=== PATIENT | male | born 1955 | race Caucasian/White ===

== ENCOUNTER → 2016-12-09 | Day surgery (SDC) | payer OTHER ==
[~2016-12-09] MED LIST: ACETAMINOPHEN/HYDROcodone 325 MG/5 MG TAB ONE; BUPIVACAINE/EPINEPHRINE 0.25% PF 30 ML VIAL ONE; KETOROLAC TROMETHAMINE 30 MG/ML (IVP) VIAL IV PUSH ONE; LACTATED RINGER'S 1000 ML INJ 1,000 ML ONE; MIDAZOLAM HCL 2 MG/2 ML VIAL ONE; ONDANSETRON HCL 4 MG/2 ML VIAL IV PUSH ONE; PROPOFOL 200 MG/20 ML AMP IV ONE; ceFAZolin 2 GM PREMIX 50 ML ONE; ceFAZolin INJ 1,000 MG VIAL ONE
--- NOTE | 2016-12-09 10:43 | TN ---
cc: JOHNNY BRANDT M.D. DATE OF SURGERY: December 09, 2016 PREOPERATIVE DIAGNOSIS Symptomatic right inguinal hernia. POSTOPERATIVE DIAGNOSIS 1. Symptomatic right inguinal hernia. 2. Indirect right inguinal hernia with large cord lipoma. PROCEDURE PERFORMED Laparoscopic right inguinal hernia repair with mesh. SURGEON Johnny Brandt MD ANESTHESIA General LMA. COMPLICATIONS None. INDICATION FOR PROCEDURE Mr. Poe is a pleasant 61-year-old gentleman who has symptomatic right inguinal hernia. He was seen and evaluated in the office. He was found to have a right-sided hernia. He had no evidence of left inguinal hernia. Risks and benefits of open laparoscopic repair were discussed with him and he requested laparoscopic. DETAILS OF PROCEDURE The patient was identified, brought to the operating room and placed supine on the operating table. After adequate general anesthesia was achieved with LMA, the anterior abdomen was prepped and draped in standard surgical fashion. Infraumbilical space was anesthetized with 0.25% Marcaine. Infraumbilical incision was made. Dissection was carried down subcutaneous tissue to the anterior rectus fascia. Anterior rectus fascia was then incised vertically off the midline to the right side. Rectus muscle was identified and retracted laterally. Preperitoneal space was entered with blunt finger dissection. Blunt dissecting balloon was inserted and insufflated with 30 pumps of air under direct vision using 0 degree laparoscope. Next, the balloon dissector was removed and balloon trocar inserted. Preperitoneal space was insufflated to 12 mmHg using CO2 gas. Next, two 5 mm trocars were placed in the lower midline under direct vision. Attention was directed first to the midline where the pubic tubercle and Eduardo's ligament were identified. Dissection then proceeded out laterally identifying the cord structures exiting the internal ring. Traveling with the cord structures there was a large amount of fat in the peritoneal hernia sac. These were carefully dissected out of the inguinal canal using hand over hand technique. They were then stripped back several centimeters away from the internal ring. There was no evidence of a direct inguinal hernia. Next, a posterior window was made behind the cord structures. A piece of polypropylene mesh was inserted with a slit cut for the cord structures. The mesh was placed through the posterior window and then the slit was reapproximated using pro-tacking device appropriately tightening the internal ring around the cord structures. Mesh was then secured medially at Eduardo's ligament and pubic tubercle and superior along the posterior abdominal wall fascia. An onlay mesh was then placed over the slit in order to buttress it. This was secured medially and laterally. With this the indirect and direct spaces were well covered by mesh with generous overlap. 0.25% Marcaine was injected in operative field. Inferior border of the mesh was then held down and the preperitoneal space was desufflated and the peritoneum was seen to roll up over the mesh, again with excellent coverage of the indirect and direct spaces. All trocars were removed under direct vision. Anterior rectus fascia was repaired with 0 Vicryl in a [id number] fashion. Skin was closed with 4-0 Vicryl. The patient tolerated the procedure well, was awakened and brought to recovery in stable condition. Johnny MD JACK Brandt/MARGARET /10:18 AM /10:30 AM
== END | disposition home or self-care (01) ==
LOC: ESDC 07:26
PROVIDERS: ATTEND Surgery Trauma Surgery
DX: K40.90 Unilateral inguinal hernia, without obstruction or gangrene, not specified as recurrent (principal); D17.6 Benign lipomatous neoplasm of spermatic cord
CPT/HCPCS: C1727; C1781; J0690; J1885; J2250; J2405; J3010; J7120

== ENCOUNTER → 2017-02-02 | Outpatient (CLI) | payer OTHER ==
[~2017-02-02] VITALS: Ht 175.3 cm; Wt 88.5 kg
[~2017-02-02] MED LIST changes: -ACETAMINOPHEN/HYDROcodone 325 MG/5 MG TAB ONE; -BUPIVACAINE/EPINEPHRINE 0.25% PF 30 ML VIAL ONE; +DEXTROSE 5% IN WATE 1000ML INJ 1,000 ML IV SCH; +INSULIN HUMAN REGULAR 1,000 UNITS/10 ML VIAL SQ PRN; -KETOROLAC TROMETHAMINE 30 MG/ML (IVP) VIAL IV PUSH ONE; -LACTATED RINGER'S 1000 ML INJ 1,000 ML ONE; +LACTATED RINGER'S 1000 ML IV SCH; +METOPROLOL TARTRATE 25 MG TAB PO PRN; -MIDAZOLAM HCL 2 MG/2 ML VIAL ONE; -ONDANSETRON HCL 4 MG/2 ML VIAL IV PUSH ONE; +SODIUM CHLORID 0.9% 500 ML IV SCH; -ceFAZolin 2 GM PREMIX 50 ML ONE; -ceFAZolin INJ 1,000 MG VIAL ONE
[2017-02-02 06:51] VITALS: BP 107/73; PULSE 70; RESP 16; TEMP 97.5; O2SAT 98
[2017-02-02 08:00] VITALS: TEMP 97.8
--- NOTE | 2017-02-02 08:02 | GIPROC ---
[facility] [address] [facility]. [facility], [address] COLONOSCOPY PROCEDURE REPORT EXAM DATE: 02/02/2017 PATIENT NAME: Jigar Poe MR #: [id number] BIRTHDATE: 1955 ENDOSCOPIST: Yarely Abdullahi MD ORDER #: [id number] ORIENTAL RUG STRETCHER: Ulysses Diaz and Melecio Griffith STATUS: outpatient INDICATIONS: The patient is a 61 yr old male here for a colonoscopy due to Screening PROCEDURE PERFORMED: Total Colonoscopy with polypectomy with biopsy forceps MEDICATIONS: See Anesthesia Record ESTIMATED BLOOD LOSS: None CONSENT: The patient understands the risks and benefits of the procedure and understands that these risks include, but are not limited to: sedation, allergic reaction, infection, perforation and/or bleeding. Alternative means of evaluation and treatment include, among others: physical exam, x-rays, and/or surgical intervention. The patient elects to proceed with this endoscopic procedure. DESCRIPTION OF PROCEDURE: checked for proper function. Hand hygiene and appropriate measures for infection prevention was taken. After the risks, benefits and alternatives of the procedure were thoroughly explained, Informed consent was verified, confirmed and timeout was successfully executed by the treatment team. A digital exam was performed. The endoscope was introduced through the anus and advanced to the cecum, which was identified by the appendiceal orifice, tri-radiate valve, and ileocecal valve. The prep quality was The instrument was then slowly withdrawn as the colon was fully examined. There were no mucosal abnormalities noted with the cecum, ascending colon, transverse colon, descending colon, or sigmoid colon. At the rectosigmoid junction a 2-3 mm polyp was noted and removed with the biopsy forceps. The scope was then completely withdrawn from the patient and the procedure terminated. ADVERSE EVENTS: There were no complications. WITHDRAWL TIME: DEGREE OF DIFFICULTY: IMPRESSIONS: Normal Colon RECOMMENDATIONS: If polyp adenomatous, repeat in 5 years, if hyperplastic repeat in 10 years PATIENT CONDITION: Stable DISPOSITION: Home RECALL: Await biopsy Yarely Abdullahi MD eSigned: Yarely Abdullahi MD 02/02/2017 8:02 AM cc: PATIENT NAME: Jigar Poe MR#: [id number]
[2017-02-02 08:25] VITALS: BP 115/73; PULSE 70; RESP 16; O2SAT 98
--- NOTE | 2017-02-02 09:14 | EKG ---
Date Performed: 02/02/2017 Time Performed: 07:11:54 PTAGE: 61 years EKG: Sinus rhythm VOLTAGE CRITERIA FOR LVH ABNORMAL ECG NO PREVIOUS TRACING DOCTOR: Shade Che Interpretating Date/Time 02/02/2017 09:13:54
== END ==
LOC: HEND 06:05
PROVIDERS: ATTEND Colon & Rectal Surgery
DX: Z12.11 Encounter for screening for malignant neoplasm of colon (principal); K63.5 Polyp of colon; R94.31 Abnormal electrocardiogram [ECG] [EKG]
CPT/HCPCS: 00810; 45380; 88305; 93005; J7120